=== PATIENT | male | born 1970 | race Caucasian/White ===

== ENCOUNTER 2016-08-20 15:33 | Emergency (ER) | payer SELFPAY ==
[2016-08-20 15:49] VITALS: BP 131/69; PULSE 80; TEMP 97.8; BMI 22.6
--- NOTE | 2016-08-20 16:16 | EDPRACDOC ---
- General Information Chief Complaint: Wound Stated Complaint: ETOH Time Seen by Provider: 08/20/16 16:09 Information Source: Patient Mode Of Arrival: Ambulance Home Medications: Home Medications Silver Sulfadiazine [Silvadene] 1 gm TOP QID #400 cream..g. 03/03/16 Allergies/Adverse Reactions: Allergies Allergy/AdvReac Type Severity Reaction Status Date / Time No Known Allergies Allergy Verified 08/20/16 15:46 - History of Present Illness Onset: 08/10 Wound Location: L posterior scalp Wound Type: Laceration Wound Discharge: None Previously Treated In: [place] [facility] Current Wound Treatment: Stapled Last Tetanus: Yes Associated Signs and Symptoms: None Other History: Pt states he is here for staple removal from scalp. Pt states he has been drinking. Denies falling, headache, vision changes, n/v,neck or back pain. - Treatment Prior to ED Arrival Reported Medications/Treatment [employer] [facility] Treatment S ED Past Medical History - History Reviewed Yes Nurses notes reviewed and agree except as marked - Patient Medical History Psychological History: Denies: Depression - Social Medical History Smoking Status: Heavy tobacco smoker (5 or more cigarettes/day or daily pipe/ cigar) ETOH: Abuse Substance Abuse: None EDM Review of Systems - Review of Systems Constitutional: No Symptoms Reported. negative: Fever, Chills, Weakness, Fatigue, Loss of Appetite Eyes: No Symptoms Reported. negative: Redness, Blurred Vision, Double Vision, Discharge, Pain, Light Sensitive, Photophobia Respiratory: No Symptoms Reported. negative: Cough, Brassy Cough, Barky Cough, Shortness of Breath, Wheezing, Hemoptysis Cardiovascular: No Symptoms Reported. negative: Chest Pain, Palpitations, Syncope, Edema, Orthopnea, PND, Skin Mottling, Cyanosis Gastrointestinal: No Symptoms Reported. negative: Pain, Constipation, Nausea, Vomiting, Diarrhea, Melena, Formula Intolerance Neurological: No Symptoms Reported. negative: Headache, Dizziness, Seizure, Numbness, Weakness, Speech Difficulty, Gait Difficulty Musculoskeletal: No Symptoms Reported. negative: Neck, Chestwall, Ribs, Back, Shoulder, Arm, Elbow, Forearm, Wrist, Hand, Pelvis, Hip, Femur, Knee, Leg, Ankle , Foot Integumentary: No Symptoms Reported. negative: Itching, Rash, Bruising, Wound Allergic/Immunologic: No Symptoms Reported. negative: Hives, Itching Hematologic: No Symptoms Reported. negative: Lymphadenopathy, Easy Bruising, Easy Bleeding Psychiatric: No Symptoms Reported. negative: Anxiety, Depression, Hallucinations, Insomnia, Suicidal - Physical Exam Constitutional: ETOH Oriented to: Time, Person, Place Last recorded Vital Signs: Last Vital Signs Temp 97.8 F 08/20/16 15:46 Pulse 80 08/20/16 15:46 Resp 20 08/20/16 15:46 BP 131/69 08/20/16 15:46 Pulse Ox 98 08/20/16 15:46 Oxygen Pulse Oxygen Saturation 98 O2 Device Room Air Oxygen Flow Rate Fraction of Inspired Oxygen ( FIO2) - HEENT Head: Normal ( normocephalic) Eye Exam: Normal (PERRL, EOMI, Sclera white) Oropharynx: Normal (Pharynx:Moist without exudate,Gums-no swelling) Tympanic Membrane: Normal ENT EAC: Normal TMJ: Normal Nose: No Symptoms Reported (septum midline) Neck: Normal (FROM, trachea at midline) - Respiratory/Cardiovascular Respiratory: Normal - CTA (BBS clear to auscultation without adventitious sounds ) Cardiovascular: Normal (RRR without murmur, gallop or rub) - Integumentary Skin: Normal, Warm, Dry Lymphatics: Normal (no adenopathy) - Neurologic Memory Impaired: Normal Motor Function: Normal (Normal tone, Pulses 2+ No cyanosis or edema, FROM) Mood Description: Normal Perception: Normal ED Wound Check Exam - Wound Detail Wound Location: L posterior scalp Healing: Well Discharge: None Erythema: None - Other Exam Other Exam Findings: romeo removed by myself with staple removal tool. Total of 2 removed. Pt tolerated well - Differential Diagnosis Healing wound Decision Time to Discharge: 16:16 - Departure Disposition: Home Condition: Good Final Diagnosis: Visit for wound check Instructions: Acute Wound Care (ED) Education/Counseling Given To: Patient Education/Counseling Given Regarding: Diagnosis, Treatment, Follow Up Referrals: None,No Provider [Primary Care Provider] - One Week Leobardo Cardenas II, MD [Staff Physician] - One Week Additional Instructions: Return for worse or different symptoms.
== END 2016-08-20 16:26 | disposition home or self-care (01) ==
LOC: ED 15:33 → EDMC 16:26
DX: Z48.02 Encounter for removal of sutures (principal); F17.200 Nicotine dependence, unspecified, uncomplicated
CPT/HCPCS: 99283